=== PATIENT | female | born 1990 | race African-American/Black ===

== ENCOUNTER 2022-04-15 17:28 | Emergency (ER) | payer OTHER ==
[~2022-04-15] VITALS: Ht 162.6 cm; Wt 48.0 kg
[2022-04-15 17:35] VITALS: BP 134/81
== END 2022-04-15 23:06 | disposition left against medical advice (07) ==
LOC: ER 17:28
DX: Z53.21 Procedure and treatment not carried out due to patient leaving prior to being seen by health care provider (principal)

== ENCOUNTER 2022-04-16 22:06 | Emergency (ER) | payer OTHER ==
[~2022-04-16] VITALS: Ht 162.6 cm; Wt 48.9 kg
[2022-04-16 22:55] VITALS: BP 117/73
[2022-04-17] MEDS ORDERED: HYDR-4622 TP (00:19)
== END 2022-04-17 00:36 | disposition home or self-care (01) ==
LOC: ER 22:06
DX: L42 Pityriasis rosea (principal); Z98.890 Other specified postprocedural states
CPT/HCPCS: 99282